=== PATIENT | female | born 1975 | race Two or more races ===

== ENCOUNTER 2018-02-01 07:25 | Day surgery (SDC) | payer MEDICAID ==
[2018-02-01] MEDS ORDERED: LIDOCAINE 1% 300 MG/30 ML SDV SC ONE (07:39)
--- NOTE | 2018-02-01 09:23 | PDHPUP ---
History & Physical Update H&P update statement: This history and physical update is based on an assessment of the patient which was completed after admission or registration (within 24 hours), but prior to the surgery/procedure. H&P update: H&P reviewed & patient examined, no change in patient's condition since H&P completed H&P changes: Cryptogenic CVA in need of more jail arrhythmia assessment
--- NOTE | 2018-02-01 09:47 | SUROPNOTE ---
[facility] Operative Report - Surgery Procedure: LINQ implant Indication: cryptogenic CVA Details: After consent was obtained (with silk opener), patient was prepped and draped in the usual fashion. Lidocaine was used for local anesthetic to the left sternal border (IC space 2-4). The initial incision was made through the skin with a #12 blade. Breath was extended with the provided blade. The delivery sled was inserted without difficulty and the LINQ was placed without issues (SN:[id number]). Three maximino were used to close the incision. Waveform of the data was reviewed and noted to be of excellent quality. Patient received no sedation for the procedure. Follow up with [facility] as scheduled.
[2018-02-01 10:19] VITALS: BP 135/82
== END 2018-02-01 09:30 | disposition home or self-care (01) ==
LOC: FCATH 07:25
PROVIDERS: ATTEND Internal Medicine Cardiovascular Disease
PROC: 0JH632Z Insertion of Monitoring Device into Chest Subcutaneous Tissue and Fascia, Percutaneous Approach (ICD-10-PCS; principal; 2018-02-01)
DX: I63.9 Cerebral infarction, unspecified (principal)
CPT/HCPCS: C1764